=== PATIENT | male | born 1985 | race Caucasian/White ===

== ENCOUNTER 2023-03-12 01:13 | Emergency (ER) | payer MEDICAID ==
[~2023-03-12] VITALS: Ht 167.6 cm; Wt 91.0 kg
[2023-03-12 01:27] VITALS: BP 143/92; TEMP 98.6; O2SAT 99
[2023-03-12 01:35] VITALS: PULSE 92; RESP 15
== END 2023-03-12 03:03 | disposition left against medical advice (07) ==
LOC: ER 01:13
DX: R42 Dizziness and giddiness (principal); Z53.21 Procedure and treatment not carried out due to patient leaving prior to being seen by health care provider
CPT/HCPCS: 82962; 99281